=== PATIENT | male | born 1935 | race Caucasian/White ===

== ENCOUNTER 2021-10-11 17:40 | Emergency (ER) | payer OTHER, MEDICARE, BC, MEDICAID ==
[~2021-10-11] VITALS: Ht 188 cm; Wt 81.8 kg
[~2021-10-11 17:40] MED LIST: APIX5TAB3 PO; ASPI-1265 PO; ATOR40TA PO; CHOL100012 PO; CLOP75TA34 PO; FERR-119 PO; PANT-47 PO; SERT25TA84 PO
[2021-10-11] MEDS ORDERED: CASIRIVIMAB/IMDEVIMAB inject. 10 ML in normal saline 100ml IV soln 100 ML IV ONE (18:40)
[2021-10-11] MEDS ORDERED: ALBU6.7H9 INH (20:54)
[2021-10-11] MEDS ORDERED: DEXA6TAB PO (20:54)
[2021-10-11 21:12] VITALS: BP 97/62
== END 2021-10-11 21:16 | disposition home or self-care (01) ==
LOC: ER 17:41
DX: U07.1 COVID-19 (principal); R53.1 Weakness; R06.02 Shortness of breath; R19.7 Diarrhea, unspecified; R05.9 Cough, unspecified; I25.10 Atherosclerotic heart disease of native coronary artery without angina pectoris; Z98.890 Other specified postprocedural states; Z79.82 Long term (current) use of aspirin; Z79.899 Other long term (current) drug therapy
CPT/HCPCS: 71045; 99284; M0243; Q0244

== ENCOUNTER 2023-04-26 12:27 | Outpatient (CLI) | payer OTHER, MEDICARE, BC, MEDICAID ==
[~2023-04-26 12:27] MED LIST changes: +APIX2.5T PO; -APIX5TAB3 PO; -ASPI-1265 PO; +ATOR20TA PO; -ATOR40TA PO; -CHOL100012 PO; -CLOP75TA34 PO; -FERR-119 PO; -PANT-47 PO; +SERT-432 PO; +SERT-433 PO; -SERT25TA84 PO
[2023-04-26 13:22] LABS: BASOPHILS % (AUTO) 0.6 % (0-1); EOSINOPHILS # (AUTO) 0.1 X10'3 (0-0.9); EOSINOPHILS % (AUTO) 1.8 % (0-6); HEMATOCRIT 37.1 % (42.0-52.0); HEMOGLOBIN 12.6 g/dl (14.0-17.9); LYMPHOCYTES % (AUTO) 12.9 % (21-51); MEAN CORPUSCULAR HEMOGLOBIN 27.6 PG (27.0-31.0); MEAN CORPUSCULAR VOLUME 81.3 FL (78-98); MONOCYTES # (AUTO) 0.6 X10'3 (0-0.9); MONOCYTES % (AUTO) 7.6 % (2-12); NEUTROPHILS % (AUTO) 77.1 % (42-75); PLATELET COUNT 143 X10'3 (140-440); RED BLOOD COUNT 4.57 X10'6 (4.70-6.10); RED CELL DISTRIBUTION WIDTH 16.5 % (11.5-14.5); WHITE BLOOD COUNT 7.8 X10'3 (4.5-11.0)
[2023-04-26 13:29] LABS: ALBUMIN 3.3 G/DL (3.4-5.0); ALBUMIN/GLOBULIN RATIO 1.2 (1.1-1.5); ANION GAP 7 (8-16); ASPARTATE AMINO TRANSFERASE 18 U/L (10-37); BILIRUBIN,TOTAL 0.5 MG/DL (0.1-1.0); BLOOD UREA NITROGEN 18 MG/DL (7-18); BUN/CREATININE RATIO 16.8 (10.0-20.0); CALCIUM 8.6 MG/DL (8.5-10.1); CHLORIDE 107 MMOL/L (99-107); CREATININE 1.07 MG/DL (0.60-1.10); GLUCOSE 111 MG/DL (70-104); POTASSIUM 3.4 MMOL/L (3.5-5.1); SODIUM 141 MMOL/L (135-145); TOTAL CARBON DIOXIDE 27.5 MMOL/L (24-32); eGFR 65 ML/MIN
[2023-04-26 13:30] LABS: ALANINE AMINOTRANSFERASE 14 U/L (12-78); ALKALINE PHOSPHATASE 95 IU/L (46-116)
== END 2023-04-26 23:59 | disposition home or self-care (01) ==
LOC: LAB SPEC 12:27
PROVIDERS: ATTEND Family Medicine
DX: Z86.73 Personal history of transient ischemic attack (TIA), and cerebral infarction without residual deficits (principal)
CPT/HCPCS: 36415; 80053; 82306; 85025

== ENCOUNTER 2023-10-09 23:47 | Inpatient (IN) | payer MEDICARE, BC, MEDICAID ==
[~2023-10-09] VITALS: Ht 182.9 cm; Wt 88.6 kg
[2023-10-10] MEDS ORDERED: ringers solution, lacted 1,000 ML IV ONE (01:15)
[2023-10-10 01:30] LABS: BASOPHILS # (AUTO) 0.1 X10'3 (0-0.2); BASOPHILS % (AUTO) 0.7 % (0-1); EOSINOPHILS # (AUTO) 0.1 X10'3 (0-0.9); EOSINOPHILS % (AUTO) 1.7 % (0-6); HEMOGLOBIN 12.1 g/dl (14.0-17.9); LYMPHOCYTES % (AUTO) 13.3 % (21-51); MEAN CORPUSCULAR HEMOGLOBIN 29.3 PG (27.0-31.0); MEAN CORPUSCULAR HGB CONC 34.6 g/dL (33.0-36.5); MEAN CORPUSCULAR VOLUME 84.6 FL (78-98); MEAN PLATELET VOLUME 7.7 FL (7.4-10.4); MONOCYTES # (AUTO) 0.7 X10'3 (0-0.9); MONOCYTES % (AUTO) 8.8 % (2-12); NEUTROPHILS # (AUTO) 5.7 X10'3 (1.8-7.7); NEUTROPHILS % (AUTO) 75.5 % (42-75); PLATELET COUNT 126 X10'3 (140-440); RED BLOOD COUNT 4.14 X10'6 (4.70-6.10); RED CELL DISTRIBUTION WIDTH 16.1 % (11.5-14.5); WHITE BLOOD COUNT 7.6 X10'3 (4.5-11.0)
[2023-10-10 01:32] LABS: UA COLLECTION TYPE FOLEY CATH
[2023-10-10 01:33] LABS: CLARITY,URINE BLOODY (Clear); COLOR,URINE RED (Yellow)
[2023-10-10 01:34] LABS: APTT 29 SECONDS (22-32); INR 1.1 INR; PROTHROMBIN TIME 11.6 SECONDS (9.0-12.0)
[2023-10-10 01:35] LABS: ALANINE AMINOTRANSFERASE 14 U/L (12-78); ALBUMIN 2.9 G/DL (3.4-5.0); ALKALINE PHOSPHATASE 78 IU/L (46-116); ANION GAP 7 (8-16); ASPARTATE AMINO TRANSFERASE 18 U/L (10-37); BILIRUBIN,TOTAL 0.5 MG/DL (0.1-1.0); BLOOD UREA NITROGEN 21 MG/DL (7-18); BUN/CREATININE RATIO 21.4 (10.0-20.0); CALCIUM 8.7 MG/DL (8.5-10.1); CHLORIDE 105 MMOL/L (99-107); CREATININE 0.98 MG/DL (0.60-1.10); GLUCOSE 122 MG/DL (70-104); SODIUM 142 MMOL/L (135-145); TOTAL CARBON DIOXIDE 30.4 MMOL/L (24-32); TOTAL PROTEIN 5.8 G/DL (6.4-8.2); eCRCL 57 ML/MIN; eGFR 72 ML/MIN
[2023-10-10] MEDS ORDERED: KCENTRA PCC 500 UNIT/20 ML IV ONE (01:40)
[2023-10-10 01:46] LABS: BACTERIA,URINE 2+ /HPF (Neg); MUCUS STRANDS NONE SEEN /LPF (Neg); RBC,URINE TNTC /HPF (0-2); SQUAMOUS EPITHELIAL CELL,UR NONE SEEN /LPF (FEW)
[2023-10-10 01:48] LABS: WBC,URINE 30-50 /HPF (0-4)
[2023-10-10] MEDS ORDERED: iohexol 300mg/ml 100ml inj. ONE (02:11)
[2023-10-10] MEDS ORDERED: CefTRIAXone 2gm/D5W 50ml BAG 50 ML IV ONE (05:05)
[2023-10-10] MEDS ORDERED: HYDROcodone/acetaminophen 10/325mg tab PO PRN (05:35)
[2023-10-10] MEDS ORDERED: magnesium Cl slow-release 64mg tablet PO PRN (05:35)
[2023-10-10] MEDS ORDERED: magnesium 4gm in 100ml NS 100 ML IV PRN (05:35)
[2023-10-10] MEDS ORDERED: ondansetron/PF 4mg/2ml inj IV PRN (05:35)
[2023-10-10] MEDS ORDERED: acetaminophen 325mg tablet PO PRN ×2 (05:35)
[2023-10-10] MEDS ORDERED: magnesium 2GM in 50ml NS 50 ML IV PRN (05:35)
[2023-10-10] MEDS ORDERED: HYDROcodone/acetaminophen 5mg/325mg tablet PO PRN (05:35)
[2023-10-10] MEDS ORDERED: potassium Cl 40MEQ/1/2NS 520ml 520 ML IV PRN (05:35)
[2023-10-10] MEDS ORDERED: potassium Cl 20 mEq SR tablet PO PRN ×2 (05:35)
[2023-10-10] MEDS ORDERED: morphine 2 MG/ML inj. syringe IV PRN ×2 (05:35)
--- NOTE | 2023-10-10 07:24 | NUR ---
, Tatiana called to speak with RN, RN was unavailable to come to the phone, tech took down the number.
--- NOTE | 2023-10-10 07:46 | NUR ---
called dorcas larson informed that the RN was still busy but that the RN would call back when she had a minute.
[2023-10-10] MEDS: normal saline 1000ml 1,000 ML IV SCH ×2 (08:07→19:38)
--- NOTE | 2023-10-10 09:40 | NUR ---
PT REPOSITIONED IN BED, LINEN CHANGE PERFORMED, AND PT PLACED IN A POSITION OF COMFORT.
--- NOTE | 2023-10-10 11:40 | NUR ---
contacted dr. trujillo/dr. miramontes regarding tachycardia, hypertension, and vomiting what appears to be coffee grounds. per md hold any blood thinners and continue maintenance fluids.
--- NOTE | 2023-10-10 12:15 | NUR ---
contacted dr. hutchison regarding reoccuring episodes of coffee ground emesis, received verbal orders for protonix and NGT placement to prevent aspiration
--- NOTE | 2023-10-10 13:02 | NUR ---
PT NOT TOLERATING NGT PLACEMENT, DR MELENDEZ CONTACTED. OK TO HOLD NGT FOR NOW. TO PUT IN ORDERS FOR REPEAT CBC AND OCREOTIDE ALEXIS
[2023-10-10] MEDS: pantoprazole 40MG/NS 100ML BAG 100 ML IV SCH ×2 (13:16→19:39)
[2023-10-10] MEDS ORDERED: DIVA125C10 PO (15:33)
[2023-10-10] MEDS ORDERED: QUET25TA36 PO (15:33)
[2023-10-10] MEDS ORDERED: SERT-432 PO (15:33)
[2023-10-10 18:00] VITALS: BP 96/51; PULSE 103; RESP 18; TEMP 97.2; O2SAT 95
--- NOTE | 2023-10-10 18:45 | NUR ---
Patient in room ORTHO 4011. I have received report from GEORGES PHILLIPS and had the opportunity to ask questions and assume patient care.
[2023-10-10 19:23] LABS: BASOPHILS % (AUTO) 0.1 % (0-1); EOSINOPHILS % (AUTO) 0 % (0-6); HEMOGLOBIN 12.6 g/dl (14.0-17.9); LYMPHOCYTES # (AUTO) 0.2 X10'3 (1.1-4.8); LYMPHOCYTES % (AUTO) 0.7 % (21-51); MEAN CORPUSCULAR VOLUME 85.2 FL (78-98); MEAN PLATELET VOLUME 7.5 FL (7.4-10.4); MONOCYTES # (AUTO) 1.1 X10'3 (0-0.9); MONOCYTES % (AUTO) 5.1 % (2-12); NEUTROPHILS # (AUTO) 20.6 X10'3 (1.8-7.7); NEUTROPHILS % (AUTO) 94.1 % (42-75); PLATELET COUNT 122 X10'3 (140-440); RED BLOOD COUNT 4.34 X10'6 (4.70-6.10); RED CELL DISTRIBUTION WIDTH 15.7 % (11.5-14.5); WHITE BLOOD COUNT 21.9 X10'3 (4.5-11.0)
[2023-10-10] MEDS: octreotide inj. 500 MCG in normal saline 100ml IV soln 97.5 ML IV SCH (19:39)
[2023-10-10 20:00] VITALS: RESP 18; O2SAT 95
--- NOTE | 2023-10-10 21:53 | NUR ---
His daughter called for updates ,she will call tomorrow again.
[2023-10-10 22:00] VITALS: BP 112/64; PULSE 95; RESP 16; TEMP 96.8; O2SAT 95
[2023-10-11] MEDS: normal saline 1000ml 1,000 ML IV SCH ×2 (05:47→21:35)
[2023-10-11] MEDS: octreotide inj. 500 MCG in normal saline 100ml IV soln 97.5 ML IV SCH (05:47)
[2023-10-11 06:00] VITALS: BP 126/70; PULSE 103; RESP 16; TEMP 98.1; O2SAT 94
--- NOTE | 2023-10-11 06:37 | NUR ---
Problems reprioritized. Patient report given, questions answered & plan of care reviewed with GEORGES Perez.
--- NOTE | 2023-10-11 06:56 | NUR ---
Patient in room ORTHO 4011. I have received report from Jazmin SU and had the opportunity to ask questions and assume patient care.
[2023-10-11 07:31] LABS: BASOPHILS % (AUTO) 0.2 % (0-1); EOSINOPHILS % (AUTO) 0 % (0-6); HEMATOCRIT 33.9 % (42.0-52.0); HEMOGLOBIN 11.4 g/dl (14.0-17.9); LYMPHOCYTES # (AUTO) 0.1 X10'3 (1.1-4.8); LYMPHOCYTES % (AUTO) 1.2 % (21-51); MEAN CORPUSCULAR HEMOGLOBIN 28.8 PG (27.0-31.0); MEAN CORPUSCULAR HGB CONC 33.7 g/dL (33.0-36.5); MEAN CORPUSCULAR VOLUME 85.6 FL (78-98); MEAN PLATELET VOLUME 7.9 FL (7.4-10.4); MONOCYTES # (AUTO) 0.5 X10'3 (0-0.9); MONOCYTES % (AUTO) 4.1 % (2-12); NEUTROPHILS # (AUTO) 11.3 X10'3 (1.8-7.7); NEUTROPHILS % (AUTO) 94.5 % (42-75); PLATELET COUNT 96 X10'3 (140-440); RED BLOOD COUNT 3.96 X10'6 (4.70-6.10); RED CELL DISTRIBUTION WIDTH 16.3 % (11.5-14.5)
[2023-10-11 07:50] LABS: ALANINE AMINOTRANSFERASE 13 U/L (12-78); ALBUMIN 2.7 G/DL (3.4-5.0); ALBUMIN/GLOBULIN RATIO 0.9 (1.1-1.5); ALKALINE PHOSPHATASE 66 IU/L (46-116); ANION GAP 11 (8-16); ASPARTATE AMINO TRANSFERASE 21 U/L (10-37); BILIRUBIN,TOTAL 0.8 MG/DL (0.1-1.0); BLOOD UREA NITROGEN 25 MG/DL (7-18); BUN/CREATININE RATIO 16.8 (10.0-20.0); CHLORIDE 104 MMOL/L (99-107); CREATININE 1.49 MG/DL (0.60-1.10); GLUCOSE 190 MG/DL (70-104); POTASSIUM 4.1 MMOL/L (3.5-5.1); SODIUM 138 MMOL/L (135-145); TOTAL CARBON DIOXIDE 22.8 MMOL/L (24-32); TOTAL PROTEIN 5.6 G/DL (6.4-8.2); eCRCL 38 ML/MIN; eGFR 45 ML/MIN
[2023-10-11 08:00] VITALS: RESP 16; O2SAT 94
[2023-10-11] MEDS: CefTRIAXone 2gm/D5W 50ml BAG 50 ML IV SCH (08:12)
[2023-10-11 08:34] LABS: ANISOCYTOSIS 1+; PLATELET ESTIMATE DECREASED; TOTAL CELLS COUNTED 100
[2023-10-11] MEDS: pantoprazole 40MG/NS 100ML BAG 100 ML IV SCH ×2 (09:12→22:26)
[2023-10-11 10:00] VITALS: BP 104/64; PULSE 96; RESP 16; TEMP 97.9; O2SAT 94
--- NOTE | 2023-10-11 11:29 | NUR ---
Malnutrition consult: Pt reports 14-23 lb wt loss with decreased appetite/PO intake per malnutrition risk screen with RN. Unable to obtain information from pt as pt documented as A/O x 1 and confused with dementia. TC to [facility] and spoke with JESSICA Troncoso who relayed wt and PO hx. Per Karyna patient's weight fluctuated from 185-171 lbs since January of this year and throughout visit pt would gain and lose weight with most recent weight being 171 lbs 10/08. Patient was on a mechanical soft vegetarian diet and eating well with mostly 100% PO intake while receiving large portions, snacks BID, and Pro-stat BID for additional protein d/t vegetarian diet, though PO intake did occasionally drop down to 50-60%. Overall it appears pt has been eating fairly well especially considering geriatric age. Per Karyna pt was constantly "propelling" around the facility in his wheelchair using his legs to move himself around. This admit, pt documented with severe decrease in muscle strength and no edema. Currently on a clear liquid diet documented with 25% PO intake of first meal. Pt currently lacks a minimum of two criteria for malnutrition. Will continue to follow and monitor s/s of malnutrition and need for nutrition intervention. Recommendations: 1) Advance to vegetarian diet as medically indicated per pt preference; consider BSS with ST as pt on mechanical soft diet at [facility] per CDM 2) Monitor need for ONS/additional food with diet advancement 3) Bowel care per physician 4) Scaled weight this admit; subsequent weekly scaled weights Addendum: 10/11/23 at [address] Amended: Links added.
--- NOTE | 2023-10-11 15:32 | NUR ---
patient was to go to GI lab for EGD but Canceled following conversation between Dr greene with daughter Citlalli. Citlalli confirmed that patient was to be DNR as per POLST. Dr Navarro notified and stated he would address code status. patient did go for CT of the head. results pending.
[2023-10-11 18:00] VITALS: BP 111/48; PULSE 84; RESP 15; TEMP 98.1; O2SAT 95
--- NOTE | 2023-10-11 19:14 | NUR ---
Patient in room ORTHO 4011. I have received report from CHIKI SU and had the opportunity to ask questions and assume patient care.
[2023-10-11 19:48] LABS: BASOPHILS % (AUTO) 0 % (0-1); EOSINOPHILS % (AUTO) 0 % (0-6); HEMATOCRIT 32.5 % (42.0-52.0); HEMOGLOBIN 10.9 g/dl (14.0-17.9); LYMPHOCYTES # (AUTO) 0.4 X10'3 (1.1-4.8); LYMPHOCYTES % (AUTO) 3.9 % (21-51); MEAN CORPUSCULAR HEMOGLOBIN 28.6 PG (27.0-31.0); MEAN CORPUSCULAR HGB CONC 33.4 g/dL (33.0-36.5); MEAN CORPUSCULAR VOLUME 85.7 FL (78-98); MEAN PLATELET VOLUME 7.9 FL (7.4-10.4); MONOCYTES % (AUTO) 8.5 % (2-12); NEUTROPHILS # (AUTO) 10.2 X10'3 (1.8-7.7); NEUTROPHILS % (AUTO) 87.6 % (42-75); PLATELET COUNT 91 X10'3 (140-440); RED BLOOD COUNT 3.79 X10'6 (4.70-6.10); RED CELL DISTRIBUTION WIDTH 16.3 % (11.5-14.5); WHITE BLOOD COUNT 11.6 X10'3 (4.5-11.0)
[2023-10-11 20:00] VITALS: RESP 15; O2SAT 99
[2023-10-11 22:00] VITALS: BP 134/78; PULSE 87; RESP 15; TEMP 97.4; O2SAT 99
[2023-10-11] MEDS: divalproex sod 125mg sprinkle cap PO SCH (22:25)
[2023-10-11] MEDS: QUEtiapine 25mg tablet PO SCH (22:25)
[2023-10-12] VITALS (7 sets, daily range): BP systolic 100–122; BP diastolic 54–80; PULSE 51–107; RESP 14–22; TEMP 97.1–98; O2SAT 94–97
[2023-10-12] MEDS: octreotide inj. 500 MCG in normal saline 100ml IV soln 97.5 ML IV SCH (03:10)
[2023-10-12 06:01] LABS: BASOPHILS % (AUTO) 0.1 % (0-1); EOSINOPHILS % (AUTO) 0 % (0-6); HEMATOCRIT 33.5 % (42.0-52.0); HEMOGLOBIN 11.1 g/dl (14.0-17.9); LYMPHOCYTES # (AUTO) 0.5 X10'3 (1.1-4.8); LYMPHOCYTES % (AUTO) 4.8 % (21-51); MEAN CORPUSCULAR HEMOGLOBIN 28.7 PG (27.0-31.0); MEAN CORPUSCULAR HGB CONC 33.1 g/dL (33.0-36.5); MEAN CORPUSCULAR VOLUME 86.5 FL (78-98); MEAN PLATELET VOLUME 8.4 FL (7.4-10.4); MONOCYTES # (AUTO) 1.1 X10'3 (0-0.9); MONOCYTES % (AUTO) 9.7 % (2-12); NEUTROPHILS # (AUTO) 9.6 X10'3 (1.8-7.7); NEUTROPHILS % (AUTO) 85.4 % (42-75); PLATELET COUNT 89 X10'3 (140-440); RED BLOOD COUNT 3.87 X10'6 (4.70-6.10); RED CELL DISTRIBUTION WIDTH 16.5 % (11.5-14.5); WHITE BLOOD COUNT 11.2 X10'3 (4.5-11.0)
[2023-10-12 06:19] LABS: ALANINE AMINOTRANSFERASE 11 U/L (12-78); ALBUMIN 2.5 G/DL (3.4-5.0); ALBUMIN/GLOBULIN RATIO 0.9 (1.1-1.5); ALKALINE PHOSPHATASE 59 IU/L (46-116); ANION GAP 10 (8-16); ASPARTATE AMINO TRANSFERASE 26 U/L (10-37); BILIRUBIN,TOTAL 0.6 MG/DL (0.1-1.0); BLOOD UREA NITROGEN 30 MG/DL (7-18); BUN/CREATININE RATIO 20.3 (10.0-20.0); CHLORIDE 104 MMOL/L (99-107); CREATININE 1.48 MG/DL (0.60-1.10); GLUCOSE 120 MG/DL (70-104); SODIUM 138 MMOL/L (135-145); TOTAL CARBON DIOXIDE 24.4 MMOL/L (24-32); TOTAL PROTEIN 5.4 G/DL (6.4-8.2); eCRCL 38 ML/MIN; eGFR 45 ML/MIN
--- NOTE | 2023-10-12 06:26 | NUR ---
Problems reprioritized. Patient report given, questions answered & plan of care reviewed with IRMA SU.
--- NOTE | 2023-10-12 06:37 | NUR ---
Patient in room ORTHO 4011. I have received report from RENETTA SU and had the opportunity to ask questions and assume patient care.
[2023-10-12 07:44] LABS: ANISOCYTOSIS 1+; PLATELET ESTIMATE DECREASED; TOTAL CELLS COUNTED 100
[2023-10-12 07:48] LABS: ELLIPTOCYTES FEW
[2023-10-12] MEDS ORDERED: sertraline 25mg tablet PO SCH (08:00)
[2023-10-12] MEDS ORDERED: atorvastatin 20mg tablet PO SCH (08:00)
[2023-10-12] MEDS: CefTRIAXone 2gm/D5W 50ml BAG 50 ML IV SCH (08:07)
[2023-10-12] MEDS: pantoprazole 40MG/NS 100ML BAG 100 ML IV SCH (08:09)
[2023-10-12] MEDS: QUEtiapine 25mg tablet PO SCH (08:16)
[2023-10-12] MEDS: divalproex sod 125mg sprinkle cap PO SCH ×2 (09:01→13:00)
[2023-10-12] MEDS: normal saline 1000ml 1,000 ML IV SCH ×2 (10:55→17:36)
--- NOTE | 2023-10-12 13:32 | NUR ---
PAGER ID: [phone] MESSAGE: GEORGES SOLIS, ORTHO, [id number]. RE: [id number]. POCKETING FOOD; UNABLE TO FOLLOW INSTRUCTIONS TO SWALLOW. NURSE SWALLOW EVAL FAILED. DO YOU WANT PT NPO FOR NOW? FAMILY AWARE
[2023-10-12 16:28] LABS: BASOPHILS % (AUTO) 0.2 % (0-1); EOSINOPHILS % (AUTO) 0 % (0-6); HEMATOCRIT 31.8 % (42.0-52.0); HEMOGLOBIN 10.7 g/dl (14.0-17.9); LYMPHOCYTES # (AUTO) 0.5 X10'3 (1.1-4.8); LYMPHOCYTES % (AUTO) 5.2 % (21-51); MEAN CORPUSCULAR HEMOGLOBIN 28.9 PG (27.0-31.0); MEAN CORPUSCULAR HGB CONC 33.6 g/dL (33.0-36.5); MEAN CORPUSCULAR VOLUME 86.2 FL (78-98); MEAN PLATELET VOLUME 8.2 FL (7.4-10.4); MONOCYTES # (AUTO) 0.9 X10'3 (0-0.9); MONOCYTES % (AUTO) 9.8 % (2-12); NEUTROPHILS # (AUTO) 7.8 X10'3 (1.8-7.7); NEUTROPHILS % (AUTO) 84.8 % (42-75); PLATELET COUNT 84 X10'3 (140-440); RED BLOOD COUNT 3.69 X10'6 (4.70-6.10); RED CELL DISTRIBUTION WIDTH 16.4 % (11.5-14.5); WHITE BLOOD COUNT 9.3 X10'3 (4.5-11.0)
--- NOTE | 2023-10-12 18:09 | NUR ---
PAGER ID: [phone] MESSAGE: GEORGES SOLIS, ORTHO, [id number]. RE: [id number]. PT. TEMP 102.4. WONT SWALLOW TYLENOL PO, PT. STARTED CHOKING ON THE APPLESAUCE. NEED TYLENOL RECTAL OR IV PLEASE. CHRIS
--- NOTE | 2023-10-12 18:34 | NUR ---
Problems reprioritized. Patient report given to sidney SU, questions answered & plan of care reviewed with .
[2023-10-12] MEDS ORDERED: acetaminophen 120MG suppository, rectal RC PRN (18:40)
--- NOTE | 2023-10-12 19:00 | NUR ---
Patient in room ORTHO 4011. I have received report from IRMA SU and had the opportunity to ask questions and assume patient care.
[2023-10-12] MEDS ORDERED: morphine 10mg/ml inj. IV PRN (19:25)
[2023-10-12] MEDS ORDERED: LORazepam 2 mg/ml vial IV PRN (19:25)
--- NOTE | 2023-10-13 01:56 | NUR ---
RESIDENT MD CALLED AND GIVEN PHONE NUMBER TO REACH PATIENT'S DAUGHTER, KAREN SIERRA. AFTER SPEAKING TO HER, PATIENT TO BE COMFORT CARE, ORDERS PLACED AND CODE STATUS CHANGED BY MD.
--- NOTE | 2023-10-13 06:31 | NUR ---
Patient in room ORTHO 4011. I have received report from RENETTA SU and had the opportunity to ask questions and assume patient care.
--- NOTE | 2023-10-13 06:55 | NUR ---
Problems reprioritized. Patient report given, questions answered & plan of care reviewed with IRMA SU.
--- NOTE | 2023-10-13 07:13 | NUR ---
Problems reprioritized. Patient report given TO JOANA SU, questions answered & plan of care reviewed with .
[2023-10-13] MEDS ORDERED: pantoprazole 40mg Tablet.DR PO SCH (07:30)
--- NOTE | 2023-10-13 07:32 | NUR ---
Patient in room ORTHO [facility]. I have received report from mariano alejandro and had the opportunity to ask questions and assume patient care. Addendum: 10/13/23 at 0734 by Wilber Spencer RN Patient in room ORTHO [facility]. I have received report from sumi alejandro and had the opportunity to ask questions and assume patient care.
[2023-10-13 11:17] LABS: BASOPHILS % (AUTO) 0.3 % (0-1); EOSINOPHILS % (AUTO) 0.2 % (0-6); HEMATOCRIT 32.7 % (42.0-52.0); HEMOGLOBIN 11.1 g/dl (14.0-17.9); LYMPHOCYTES # (AUTO) 0.5 X10'3 (1.1-4.8); LYMPHOCYTES % (AUTO) 6.4 % (21-51); MEAN CORPUSCULAR HEMOGLOBIN 28.8 PG (27.0-31.0); MEAN CORPUSCULAR HGB CONC 33.8 g/dL (33.0-36.5); MEAN CORPUSCULAR VOLUME 85.2 FL (78-98); MEAN PLATELET VOLUME 8.4 FL (7.4-10.4); MONOCYTES # (AUTO) 0.7 X10'3 (0-0.9); NEUTROPHILS % (AUTO) 83.1 % (42-75); PLATELET COUNT 85 X10'3 (140-440); RED BLOOD COUNT 3.84 X10'6 (4.70-6.10); RED CELL DISTRIBUTION WIDTH 15.9 % (11.5-14.5); WHITE BLOOD COUNT 7.3 X10'3 (4.5-11.0)
[2023-10-13 11:29] LABS: ALANINE AMINOTRANSFERASE 15 U/L (12-78); ALBUMIN 2.3 G/DL (3.4-5.0); ALBUMIN/GLOBULIN RATIO 0.8 (1.1-1.5); ALKALINE PHOSPHATASE 60 IU/L (46-116); ANION GAP 5 (8-16); ASPARTATE AMINO TRANSFERASE 35 U/L (10-37); BILIRUBIN,TOTAL 0.8 MG/DL (0.1-1.0); BLOOD UREA NITROGEN 21 MG/DL (7-18); CALCIUM 7.9 MG/DL (8.5-10.1); CHLORIDE 106 MMOL/L (99-107); CREATININE 1.05 MG/DL (0.60-1.10); GLUCOSE 103 MG/DL (70-104); POTASSIUM 3.5 MMOL/L (3.5-5.1); SODIUM 139 MMOL/L (135-145); TOTAL CARBON DIOXIDE 27.7 MMOL/L (24-32); TOTAL PROTEIN 5.2 G/DL (6.4-8.2); eCRCL 53 ML/MIN; eGFR 67 ML/MIN
[2023-10-13 11:30] VITALS: BP 125/63; PULSE 82; RESP 16; TEMP 99.8; O2SAT 96
--- NOTE | 2023-10-13 16:28 | NUR ---
Page Sent PAGER ID: [phone] MESSAGE: [id number] mary, i was wondering if you wanted this pt on fluids he is npo due to aspiration and no iv fluids running. his pee is brown with sediment. radha [id number]
--- NOTE | 2023-10-13 19:23 | NUR ---
1830Patient in room ORTHO 4011. I have received report from SANKET SU and had the opportunity to ask questions and assume patient care.
[2023-10-13] MEDS: normal saline 1000ml 1,000 ML IV SCH (19:53)
--- NOTE | 2023-10-13 19:53 | NUR ---
Problems reprioritized. Patient report given, questions answered & plan of care reviewed with sidney alejandro.
[2023-10-13 20:00] VITALS: RESP 17; O2SAT 95
[2023-10-13 22:00] VITALS: BP 113/62; PULSE 81; RESP 20; TEMP 97.9; O2SAT 93
--- NOTE | 2023-10-14 07:06 | NUR ---
Problems reprioritized. Patient report given, questions answered & plan of care reviewed with SANKET SU.
--- NOTE | 2023-10-14 10:50 | NUR ---
Page Sent PAGER ID: [phone] MESSAGE: [id number] b mary pt passed bss, his family wants him to have some Tylenol for mild pain. radha Pozo
[2023-10-14] MEDS ORDERED: acetaminophen 325mg tablet PO PRN (10:55)
[2023-10-14 11:00] VITALS: BP 122/72; PULSE 92; RESP 14; TEMP 97.4; O2SAT 96
--- NOTE | 2023-10-14 12:00 | NUR ---
pt family was talking with md at bedside. i let the family know i did get a MOM order for the pt since his last BM was unknown. asked family if they were ok with pt getting MOM and they said they were.
[2023-10-14] MEDS: normal saline 1000ml 1,000 ML IV SCH (12:30)
--- NOTE | 2023-10-14 15:22 | NUR ---
Problems reprioritized. Patient report given, questions answered & plan of care reviewed with ema menendez at [facility]. Addendum: 10/14/23 at 1536 by Wilber Spencer RN Problems reprioritized. Patient report given, questions answered & plan of care reviewed with ema menendez at [facility]. asked nurse if they had on record when was the pts LBM they stated it had been awhile. i told nurse i would give pt MOM so they knew.
[2023-10-14] MEDS ORDERED: magnesium hydroxide 30ml (MOM) UD suspension PO PRN (15:35)
--- NOTE | 2023-10-14 18:11 | NUR ---
pt stable for dc, report was called to [facility], iv dc cannula intact, per catheter is to go with pt to [facility], all dc info and packet was sent with transport, pt has no meds in pharmacy and no belongings at bedside pt. pt was wheeled down in a gurney and left in a medi van with [facility] personnel to [facility].
== END 2023-10-14 18:11 | DRG 377 ==
LOC: ER 23:48 → ED HOLD 10-10 05:37 → ORTHO 4S 10-10 14:00
PROVIDERS: ADMIT Internal Medicine; ATTEND Family Medicine
PROC: BW211ZZ Computerized Tomography (CT Scan) of Abdomen and Pelvis using Low Osmolar Contrast (ICD-10-PCS; principal; 2023-10-10)
DX: K92.2 Gastrointestinal hemorrhage, unspecified (principal); N17.0 Acute kidney failure with tubular necrosis; N39.0 Urinary tract infection, site not specified; D68.9 Coagulation defect, unspecified; R65.10 Systemic inflammatory response syndrome (SIRS) of non-infectious origin without acute organ dysfunction; E86.0 Dehydration; I48.91 Unspecified atrial fibrillation; I25.10 Atherosclerotic heart disease of native coronary artery without angina pectoris; N18.2 Chronic kidney disease, stage 2 (mild); I12.9 Hypertensive chronic kidney disease with stage 1 through stage 4 chronic kidney disease, or unspecified chronic kidney disease; E78.00 Pure hypercholesterolemia, unspecified; D64.9 Anemia, unspecified; Z66 Do not resuscitate; F03.B0 Unspecified dementia, moderate, without behavioral disturbance, psychotic disturbance, mood disturbance, and anxiety; Z79.899 Other long term (current) drug therapy; Z79.01 Long term (current) use of anticoagulants; Z51.5 Encounter for palliative care
CPT/HCPCS: 36415; 70450; 71045; 74176; 80053; 81001; 82948; 83605; 84145; 84484; 85007; 85025; 85610; 85730; 86885; 86900; 86901; 87040; 87081; 92508; 92616; 97161; 97530; 99285; A4314; A5200; A6258; A6446; C9113; G0378; J0696; J2354; J2405; J3490; J7030; J7040; J7120; J7168; Q9967

== ENCOUNTER 2023-10-29 15:59 | Outpatient (CLI) | payer MEDICARE, BC, MEDICAID ==
[~2023-10-29 15:59] MED LIST changes: +DIVA125C10 PO; +QUET25TA36 PO; -SERT-433 PO
[2023-10-29 18:54] LABS: BASOPHILS % (AUTO) 0.4 % (0-1); EOSINOPHILS # (AUTO) 0.2 X10'3 (0-0.9); EOSINOPHILS % (AUTO) 2.7 % (0-6); HEMATOCRIT 32.2 % (42.0-52.0); HEMOGLOBIN 10.8 g/dl (14.0-17.9); LYMPHOCYTES # (AUTO) 1.3 X10'3 (1.1-4.8); LYMPHOCYTES % (AUTO) 19.2 % (21-51); MEAN CORPUSCULAR HEMOGLOBIN 28.9 PG (27.0-31.0); MEAN CORPUSCULAR HGB CONC 33.6 g/dL (33.0-36.5); MEAN CORPUSCULAR VOLUME 86.1 FL (78-98); MEAN PLATELET VOLUME 7.8 FL (7.4-10.4); MONOCYTES # (AUTO) 0.6 X10'3 (0-0.9); MONOCYTES % (AUTO) 8.6 % (2-12); NEUTROPHILS # (AUTO) 4.7 X10'3 (1.8-7.7); NEUTROPHILS % (AUTO) 69.1 % (42-75); PLATELET COUNT 133 X10'3 (140-440); RED BLOOD COUNT 3.74 X10'6 (4.70-6.10); RED CELL DISTRIBUTION WIDTH 16.5 % (11.5-14.5); WHITE BLOOD COUNT 6.9 X10'3 (4.5-11.0)
[2023-10-29 19:12] LABS: ALANINE AMINOTRANSFERASE 20 U/L (12-78); ALBUMIN 2.8 G/DL (3.4-5.0); ALBUMIN/GLOBULIN RATIO 0.9 (1.1-1.5); ALKALINE PHOSPHATASE 90 IU/L (46-116); ANION GAP 5 (8-16); ASPARTATE AMINO TRANSFERASE 20 U/L (10-37); BILIRUBIN,TOTAL 0.7 MG/DL (0.1-1.0); BLOOD UREA NITROGEN 14 MG/DL (7-18); BUN/CREATININE RATIO 14.4 (10.0-20.0); CALCIUM 8.1 MG/DL (8.5-10.1); CHLORIDE 104 MMOL/L (99-107); CREATININE 0.97 MG/DL (0.60-1.10); GLUCOSE 103 MG/DL (70-104); PHOSPHORUS 3.7 MG/DL (2.3-4.5); POTASSIUM 4.1 MMOL/L (3.5-5.1); SODIUM 138 MMOL/L (135-145); TOTAL CARBON DIOXIDE 29.2 MMOL/L (24-32); TOTAL PROTEIN 5.8 G/DL (6.4-8.2); eGFR 73 ML/MIN
[2023-10-29 19:27] LABS: COLOR,URINE YELLOW (Yellow); UA COLLECTION TYPE NON-SPECIFIED
[2023-10-29 19:28] LABS: CLARITY,URINE CLOUDY (Clear)
[2023-10-29 19:30] LABS: BILIRUBIN,URINE NEGATIVE (Neg); GLUCOSE, URINE NEGATIVE (Neg); KETONES,URINE TRACE mg/dl (Neg); LEUKOCYTE ESTERASE ,URINE LARGE (Neg); NITRITES, URINE POSITIVE (Neg); OCCULT BLOOD,URINE LARGE (Neg); PROTEIN,URINE 300 mg/dl (Neg); UROBILINOGEN,URINE 0.2 E.U/dL (0.2-1.0)
[2023-10-29 19:33] LABS: BACTERIA,URINE 3+ /HPF (Neg); SQUAMOUS EPITHELIAL CELL,UR FEW /LPF (FEW); TRANSITIONAL EPI CELLS,URINE FEW /HPF; WBC CLUMPS,URINE MODERATE /HPF (NEGATIVE); WBC,URINE TNTC /HPF (0-4)
== END 2023-10-29 23:59 | disposition home or self-care (01) ==
LOC: LAB SPEC 15:59
PROVIDERS: ATTEND Family Medicine
DX: N17.9 Acute kidney failure, unspecified (principal); N39.0 Urinary tract infection, site not specified; Z86.73 Personal history of transient ischemic attack (TIA), and cerebral infarction without residual deficits
CPT/HCPCS: 36415; 80053; 81001; 84100; 84145; 85025; 87077; 87088; 87186

== ENCOUNTER 2023-11-01 14:18 | Inpatient (IN) | payer MEDICARE, BC, MEDICAID ==
[~2023-11-01] VITALS: Ht 188 cm; Wt 77.0 kg
[2023-11-01] MEDS ORDERED: vancomycin/NS 1 GM ADD-VANTAGE 250 ML IV ONE (15:50)
[2023-11-01] MEDS ORDERED: normal saline 1000ML IV soln IV ONE (15:50)
[2023-11-01 16:45] LABS: BASOPHILS % (AUTO) 0.4 % (0-1); EOSINOPHILS # (AUTO) 0.1 X10'3 (0-0.9); EOSINOPHILS % (AUTO) 2.2 % (0-6); HEMATOCRIT 33.8 % (42.0-52.0); HEMOGLOBIN 11.7 g/dl (14.0-17.9); LYMPHOCYTES # (AUTO) 1.2 X10'3 (1.1-4.8); LYMPHOCYTES % (AUTO) 18.5 % (21-51); MEAN CORPUSCULAR HEMOGLOBIN 29.5 PG (27.0-31.0); MEAN CORPUSCULAR HGB CONC 34.6 g/dL (33.0-36.5); MEAN CORPUSCULAR VOLUME 85.1 FL (78-98); MEAN PLATELET VOLUME 7.7 FL (7.4-10.4); MONOCYTES # (AUTO) 0.6 X10'3 (0-0.9); MONOCYTES % (AUTO) 9.5 % (2-12); NEUTROPHILS # (AUTO) 4.4 X10'3 (1.8-7.7); NEUTROPHILS % (AUTO) 69.4 % (42-75); PLATELET COUNT 121 X10'3 (140-440); RED BLOOD COUNT 3.97 X10'6 (4.70-6.10); RED CELL DISTRIBUTION WIDTH 16.5 % (11.5-14.5); WHITE BLOOD COUNT 6.4 X10'3 (4.5-11.0)
[2023-11-01 17:02] LABS: ALANINE AMINOTRANSFERASE 17 U/L (12-78); ALBUMIN/GLOBULIN RATIO 0.9 (1.1-1.5); ALKALINE PHOSPHATASE 92 IU/L (46-116); ANION GAP 8 (8-16); ASPARTATE AMINO TRANSFERASE 18 U/L (10-37); BILIRUBIN,TOTAL 0.7 MG/DL (0.1-1.0); BLOOD UREA NITROGEN 19 MG/DL (7-18); BUN/CREATININE RATIO 18.6 (10.0-20.0); CALCIUM 8.4 MG/DL (8.5-10.1); CHLORIDE 104 MMOL/L (99-107); CREATININE 1.02 MG/DL (0.60-1.10); GLUCOSE 90 MG/DL (70-104); MAGNESIUM 2.1 MG/DL (1.5-2.4); SODIUM 139 MMOL/L (135-145); TOTAL CARBON DIOXIDE 27.1 MMOL/L (24-32); TOTAL PROTEIN 6.5 G/DL (6.4-8.2); eCRCL 55 ML/MIN; eGFR 69 ML/MIN
[2023-11-01 17:43] LABS: BILIRUBIN,URINE NEGATIVE (Neg); CLARITY,URINE TURBID (Clear); COLOR,URINE YELLOW (Yellow); GLUCOSE, URINE NEGATIVE (Neg); KETONES,URINE NEGATIVE (Neg); LEUKOCYTE ESTERASE ,URINE MODERATE (Neg); NITRITES, URINE NEGATIVE (Neg); OCCULT BLOOD,URINE SMALL (Neg); PH,URINE 8.5 (4.8-8.0); PROTEIN,URINE NEGATIVE (Neg); UROBILINOGEN,URINE 0.2 E.U/dL (0.2-1.0)
[2023-11-01 18:09] LABS: UA COLLECTION TYPE FOLEY CATH
[2023-11-01 18:11] LABS: WBC,URINE TNTC /HPF (0-4)
[2023-11-01 18:12] LABS: BACTERIA,URINE FEW /HPF (Neg); MUCUS STRANDS NONE SEEN /LPF (Neg); SQUAMOUS EPITHELIAL CELL,UR FEW /LPF (FEW); WBC CLUMPS,URINE FEW /HPF (NEGATIVE)
[2023-11-01] MEDS ORDERED: cefepime 2g/NS 100ml ADVANTAGE 100 ML IV SCH (20:00)
[2023-11-02] VITALS (8 sets, daily range): BP systolic 116–124; BP diastolic 56–80; PULSE 26–94; RESP 12–18; TEMP 97.2–99.5; O2SAT 97–100
[2023-11-02] MEDS ORDERED: magnesium 4gm in 100ml NS 100 ML IV PRN (01:05)
[2023-11-02] MEDS ORDERED: magnesium hydroxide 30ml (MOM) UD suspension PO PRN (01:05)
[2023-11-02] MEDS ORDERED: potassium Cl 40MEQ/1/2NS 520ml 520 ML IV PRN (01:05)
[2023-11-02] MEDS ORDERED: magnesium 2GM in 50ml NS 50 ML IV PRN (01:05)
[2023-11-02] MEDS ORDERED: HYDROcodone/acetaminophen 5mg/325mg tablet PO PRN (01:05)
[2023-11-02] MEDS ORDERED: mag hydrox/Alum hydrox/simeth 30ml oral suspension PO PRN (01:05)
[2023-11-02] MEDS ORDERED: ondansetron/PF 4mg/2ml inj IV PRN (01:05)
[2023-11-02] MEDS ORDERED: acetaminophen 325mg tablet PO PRN (01:05)
[2023-11-02] MEDS: normal saline 1000ml 1,000 ML IV SCH (01:09)
[2023-11-02] MEDS: meropenem inj 500 MG in normal saline 100ml IV soln 100 ML IV SCH ×4 (02:08→20:47)
[2023-11-02 03:19] LABS: MAGNESIUM 1.9 MG/DL (1.5-2.4); POTASSIUM 3.8 MMOL/L (3.5-5.1)
[2023-11-02] MEDS ORDERED: docusate sod 100mg capsule PO SCH (08:00)
[2023-11-02] MEDS: K and/or MAG REPLACEMENT MC SCH ×2 (08:00→20:00)
[2023-11-02] MEDS: vancomycin/NS 1 GM ADD-VANTAGE 250 ML IV SCH (10:24)
[2023-11-03] MEDS: meropenem inj 500 MG in normal saline 100ml IV soln 100 ML IV SCH ×4 (02:11→22:05)
[2023-11-03] MEDS: normal saline 1000ml 1,000 ML IV SCH ×2 (02:11→17:05)
[2023-11-03 06:00] VITALS: BP 117/64; PULSE 89; RESP 17; TEMP 97.8; O2SAT 98
[2023-11-03 07:07] LABS: BASOPHILS % (AUTO) 0.6 % (0-1); EOSINOPHILS # (AUTO) 0.3 X10'3 (0-0.9); HEMATOCRIT 31.6 % (42.0-52.0); HEMOGLOBIN 10.7 g/dl (14.0-17.9); LYMPHOCYTES % (AUTO) 18.3 % (21-51); MEAN CORPUSCULAR HGB CONC 33.8 g/dL (33.0-36.5); MEAN CORPUSCULAR VOLUME 85.7 FL (78-98); MEAN PLATELET VOLUME 7.6 FL (7.4-10.4); MONOCYTES # (AUTO) 0.5 X10'3 (0-0.9); MONOCYTES % (AUTO) 9.8 % (2-12); NEUTROPHILS # (AUTO) 3.7 X10'3 (1.8-7.7); NEUTROPHILS % (AUTO) 66.3 % (42-75); PLATELET COUNT 102 X10'3 (140-440); RED BLOOD COUNT 3.68 X10'6 (4.70-6.10); RED CELL DISTRIBUTION WIDTH 16.8 % (11.5-14.5); WHITE BLOOD COUNT 5.6 X10'3 (4.5-11.0)
[2023-11-03 07:35] LABS: ALANINE AMINOTRANSFERASE 11 U/L (12-78); ALBUMIN 2.6 G/DL (3.4-5.0); ALBUMIN/GLOBULIN RATIO 0.8 (1.1-1.5); ALKALINE PHOSPHATASE 75 IU/L (46-116); ANION GAP 8 (8-16); ASPARTATE AMINO TRANSFERASE 19 U/L (10-37); BILIRUBIN,TOTAL 0.8 MG/DL (0.1-1.0); BLOOD UREA NITROGEN 11 MG/DL (7-18); BUN/CREATININE RATIO 13.3 (10.0-20.0); CALCIUM 8.2 MG/DL (8.5-10.1); CHLORIDE 106 MMOL/L (99-107); CREATININE 0.83 MG/DL (0.60-1.10); GLUCOSE 96 MG/DL (70-104); MAGNESIUM 1.7 MG/DL (1.5-2.4); POTASSIUM 3.5 MMOL/L (3.5-5.1); SODIUM 140 MMOL/L (135-145); TOTAL CARBON DIOXIDE 26.2 MMOL/L (24-32); TOTAL PROTEIN 5.9 G/DL (6.4-8.2); eCRCL 67 ML/MIN; eGFR 87 ML/MIN
[2023-11-03 08:00] VITALS: RESP 18
[2023-11-03] MEDS: K and/or MAG REPLACEMENT MC SCH ×2 (08:00→20:00)
[2023-11-03] MEDS: vancomycin/NS 1 GM ADD-VANTAGE 250 ML IV SCH (09:31)
[2023-11-03 11:30] VITALS: BP 108/65; PULSE 76; RESP 14; TEMP 97.8; O2SAT 99
[2023-11-03 18:00] VITALS: BP 125/75; PULSE 85; RESP 18; TEMP 97.8; O2SAT 99
[2023-11-03 22:00] VITALS: BP 123/78; PULSE 85; RESP 18; TEMP 98.6; O2SAT 99
[2023-11-03] MEDS: divalproex sod 125mg sprinkle cap PO SCH (22:12)
[2023-11-03] MEDS: QUEtiapine 25mg tablet PO SCH (22:12)
[2023-11-03] MEDS: apixaban 2.5mg tablet PO SCH (22:12)
[2023-11-04] MEDS: vancomycin/NS 1 GM ADD-VANTAGE 250 ML IV SCH ×3 (00:35→08:53)
[2023-11-04] MEDS: meropenem inj 500 MG in normal saline 100ml IV soln 100 ML IV SCH ×2 (02:23→07:30)
[2023-11-04 06:06] VITALS: BP 124/68; PULSE 82; RESP 16; TEMP 97.7; O2SAT 98
[2023-11-04 06:11] LABS: BASOPHILS % (AUTO) 0.7 % (0-1); EOSINOPHILS # (AUTO) 0.3 X10'3 (0-0.9); EOSINOPHILS % (AUTO) 5.5 % (0-6); HEMATOCRIT 33.3 % (42.0-52.0); HEMOGLOBIN 11.4 g/dl (14.0-17.9); LYMPHOCYTES # (AUTO) 1.2 X10'3 (1.1-4.8); LYMPHOCYTES % (AUTO) 21.6 % (21-51); MEAN CORPUSCULAR HEMOGLOBIN 29.2 PG (27.0-31.0); MEAN CORPUSCULAR HGB CONC 34.3 g/dL (33.0-36.5); MEAN CORPUSCULAR VOLUME 85.2 FL (78-98); MEAN PLATELET VOLUME 7.7 FL (7.4-10.4); MONOCYTES # (AUTO) 0.5 X10'3 (0-0.9); MONOCYTES % (AUTO) 9.9 % (2-12); NEUTROPHILS # (AUTO) 3.3 X10'3 (1.8-7.7); NEUTROPHILS % (AUTO) 62.3 % (42-75); PLATELET COUNT 88 X10'3 (140-440); RED BLOOD COUNT 3.91 X10'6 (4.70-6.10); WHITE BLOOD COUNT 5.3 X10'3 (4.5-11.0)
[2023-11-04 06:18] LABS: ALANINE AMINOTRANSFERASE 13 U/L (12-78); ALBUMIN 2.8 G/DL (3.4-5.0); ALBUMIN/GLOBULIN RATIO 0.9 (1.1-1.5); ALKALINE PHOSPHATASE 82 IU/L (46-116); ANION GAP 8 (8-16); ASPARTATE AMINO TRANSFERASE 22 U/L (10-37); BILIRUBIN,TOTAL 0.7 MG/DL (0.1-1.0); BLOOD UREA NITROGEN 10 MG/DL (7-18); BUN/CREATININE RATIO 10.8 (10.0-20.0); CALCIUM 8.5 MG/DL (8.5-10.1); CHLORIDE 106 MMOL/L (99-107); CREATININE 0.93 MG/DL (0.60-1.10); GLUCOSE 88 MG/DL (70-104); MAGNESIUM 1.8 MG/DL (1.5-2.4); POTASSIUM 3.5 MMOL/L (3.5-5.1); SODIUM 140 MMOL/L (135-145); eCRCL 60 ML/MIN; eGFR 77 ML/MIN
[2023-11-04 08:00] VITALS: RESP 18
[2023-11-04] MEDS ORDERED: atorvastatin 20mg tablet PO SCH (08:00)
[2023-11-04] MEDS ORDERED: sertraline 25mg tablet PO SCH (08:00)
[2023-11-04] MEDS: K and/or MAG REPLACEMENT MC SCH (08:00)
[2023-11-04] MEDS: apixaban 2.5mg tablet PO SCH (08:27)
[2023-11-04] MEDS: QUEtiapine 25mg tablet PO SCH (08:27)
[2023-11-04] MEDS: divalproex sod 125mg sprinkle cap PO SCH ×2 (08:29→13:04)
[2023-11-04 10:00] VITALS: BP 135/82; PULSE 76; RESP 13; TEMP 97.5; O2SAT 99
[2023-11-04] MEDS: normal saline 1000ml 1,000 ML IV SCH (13:05)
[2023-11-04] MEDS ORDERED: VANCOMYCIN LEVEL IV ONE (19:30)
== END 2023-11-04 15:45 | DRG 699 ==
LOC: ER 14:18 → ED HOLD 11-02 01:06 → EDBEDREQ 11-02 02:04 → ORTHO 4S 11-02 04:20
PROVIDERS: ADMIT Internal Medicine; ATTEND Internal Medicine
DX: T83.518A Infection and inflammatory reaction due to other urinary catheter, initial encounter (principal); N10 Acute pyelonephritis; Z66 Do not resuscitate; E86.0 Dehydration; I48.91 Unspecified atrial fibrillation; I25.10 Atherosclerotic heart disease of native coronary artery without angina pectoris; D69.6 Thrombocytopenia, unspecified; B96.5 Pseudomonas (aeruginosa) (mallei) (pseudomallei) as the cause of diseases classified elsewhere; B95.62 Methicillin resistant Staphylococcus aureus infection as the cause of diseases classified elsewhere; B95.2 Enterococcus as the cause of diseases classified elsewhere; Y84.6 Urinary catheterization as the cause of abnormal reaction of the patient, or of later complication, without mention of misadventure at the time of the procedure; F03.90 Unspecified dementia, unspecified severity, without behavioral disturbance, psychotic disturbance, mood disturbance, and anxiety; Z85.46 Personal history of malignant neoplasm of prostate; Z85.51 Personal history of malignant neoplasm of bladder; Z98.61 Coronary angioplasty status; Y92.89 Other specified places as the place of occurrence of the external cause; Z79.899 Other long term (current) drug therapy
CPT/HCPCS: 36415; 71045; 80053; 81001; 83605; 83735; 84132; 84145; 84484; 85025; 87040; 87077; 87081; 87088; 87186; 93005; 99285; A4314; A4346; A4615; A6253; C1758; G0378; J0692; J2185; J3370; J3490; J7030